=== PATIENT | female | born 1990 | race Caucasian/White ===

== ENCOUNTER 2016-10-12 23:17 | Emergency (ER) | payer OTHER ==
[2016-10-12 23:20] VITALS: BP 133/97; PULSE 79; TEMP 98.5; BMI 29.2
--- NOTE | 2016-10-12 23:28 | PDOC ---
History of Present Illness - General Chief Complaint: Chest Pain Stated Complaint: CHEST HEAVINESS Time Seen by Provider: 10/12/16 23:24 History Source: Patient Exam Limitations: No Limitations - History of Present Illness Initial Comments: 10/12/16 23:24 26 Y F NO PMHX NO RISK FACTORS FOR CAD OR PE, TRACTOR EXPERT UNDER "A LOT OF STRESS" PALPITATIONS AND CHEST TIGHTNESS ON AND OFF. SPECIALLY AT NIGHTS. NO N/ V. OCCASIONAL NUMBNESS OR SWEATING OF HANDS. IN ED IN NAD. SLIGHTLY ANXIOUS. STILL FEELS SOME PRESSURE BUT IS GETTING BETTER. Past History - Past Medical History Allergies/Adverse Reactions: Allergies Allergy/AdvReac Type Severity Reaction Status Date / Time No Known Allergies Allergy Unverified 03/04/14 22:45 Home Medications: Ambulatory Orders NK [No Known Home Medication] 03/04/14 - Immunization History Td Vaccination: Yes Immunization Up to Date: Yes - Psycho/Social/Smoking Cessation Hx Anxiety: No Suicidal Ideation: No Smoking Status: No Smoking History: Unknown if ever smoked Number of Cigarettes Smoked Daily: 0 Hx Alcohol Use: Yes (SOCIALLY) Cardiac Specific PMH - Complaint Specific PMHX Angina: No Pulmonary Embolus: No Review of Systems - Review of Systems Able to Perform ROS?: Yes Is the patient limited Mohawk proficient: No Constitutional: Yes: Symptoms Reported, See HPI HEENTM: No: Symptoms Reported Respiratory: Yes: Symptoms reported, See HPI Cardiac (ROS): Yes: Symptoms Reported, See HPI Neurological: Yes: Symptoms reported, See HPI Psychiatric: Yes: Anxiety All Other Systems: Reviewed and Negative *Physical Exam - Vital Signs Last Vital Signs Temp Pulse Resp BP Pulse Ox 98.5 F 79 16 133/97 98 10/12/16 23:18 10/12/16 23:18 10/12/16 23:18 10/12/16 23:18 10/12/16 23:18 - Physical Exam General Appearance: Yes: Nourished, Appropriately Dressed. No: Apparent Distress HEENT: positive: Normal ENT Inspection Neck: positive: Supple. negative: Carotid bruit Respiratory/Chest: positive: Lungs Clear, Normal Breath Sounds. negative: Chest Tender, Respiratory Distress Cardiovascular: positive: Regular Rhythm, Regular Rate Gastrointestinal/Abdominal: positive: Normal Bowel Sounds, Soft. negative: Tender Extremity: positive: Normal Capillary Refill. negative: Tender, Pedal Edema Integumentary: positive: Normal Color Neurologic: positive: Fully Oriented, Alert, Normal Mood/Affect, Normal Response , Motor Strength 5/5 *DC/Admit/Observation/Transfer Diagnosis at time of Disposition: Anxiety in acute stress reaction - Discharge Dispostion Disposition: HOME Condition at time of disposition: Improved - Patient Instructions Additional Instructions: RESPIRATORY CONTROL AND RELAXATION CALL YOUR DOCTOR TOMORROW RETURN IF WORSENING OR NEW SYMPTOMS
== END 2016-10-12 23:32 | disposition home or self-care (01) ==
LOC: FER 23:17
DX: F41.1 Generalized anxiety disorder (principal); F43.0 Acute stress reaction
CPT/HCPCS: 99281-25

== ENCOUNTER 2018-08-14 22:48 | Emergency (ER) | payer BC, OTHER ==
--- NOTE | 2018-08-14 23:00 | PDOC ---
History of Present Illness - General Chief Complaint: Urinary Problem Stated Complaint: BURNING WITH URINATION Time Seen by Provider: 08/14/18 22:51 - History of Present Illness Initial Comments: This 28-year-old woman presents with a one-day history of dysuria and mild urinary urgency/frequency. She denies hematuria/fever/back pain/nausea or vomiting. One previous episode of UTI at age 16. Otherwise, no history of genitourinary problems. Patient has a history of infertility and states that she had an intrauterine insemination performed by her fertility doctor on MondayAugust 06. Past History - Past Medical History Allergies/Adverse Reactions: Allergies Allergy/AdvReac Type Severity Reaction Status Date / Time No Known Allergies Allergy Verified 08/14/18 22:55 Home Medications: Ambulatory Orders Cephalexin [Keflex] 500 mg PO TID #15 capsule 08/14/18 Metformin HCl [Glucophage] 1,000 mg PO DAILY 08/14/18 Prenat 115/Iron Fum/Folic/Dss [ 19 Tablet] 1 each PO DAILY 08/14/18 - Immunization History Td Vaccination: Yes Immunization Up to Date: Yes - Suicide/Smoking/Psychosocial Hx Smoking Status: No Smoking History: Unknown if ever smoked Number of Cigarettes Smoked Daily: 0 Hx Alcohol Use: Yes (SOCIALLY) Review of Systems - Review of Systems Able to Perform ROS?: Yes Comments:: 12 point review of systems is negative except for what is noted in the history of present illness *Physical Exam - Physical Exam Comments: GENERAL: Adult female, alert and oriented 3, in no acute distress HEAD: Normal with no signs of trauma. EYES: PERRLA, EOMI, sclera anicteric, conjunctiva clear. ENT: Ears normal, nares patent, oropharynx clear without exudates. Moist mucous membranes. NECK: Normal range of motion, supple without lymphadenopathy, JVD, or masses. LUNGS: Breath sounds equal, clear to auscultation bilaterally. No wheezes, and no crackles. HEART:Regular rate and rhythm, normal S1 and S2 without murmur, rub or gallop. ABDOMEN:.normal bowel sounds No guarding or rebound.No masses No distention. Mild suprapubic tenderness EXTREMITIES: Normal range of motion, no edema. No clubbing or cyanosis. No erythema, or tenderness. NEUROLOGICAL: Cranial nerves II through XII grossly intact. Normal speech. No focal neurological deficits. MUSCULOSKELETAL: Back non-tender to palpation, no CVA tenderness SKIN: Warm, Dry, normal turgor, no rashes or lesions noted. Progress Note - Progress Note Progress Note: Urinalysis sent. Results of the urinalysis suggest UTI: Positive nitrite, 20-40 RBCs/50-100 WBCs , 2+ epi, 2+ bacteria. Urine sent for culture and sensitivity Since patient has significant symptoms, treatment will be begun empirically. Keflex 500 mg 3 times a day for 5 days prescribed with prescription being sent to her pharmacy. Patient will have the first dose of Keflex 500 mg here in the emergency room. Meanwhile, she should continue drink plenty of water and return to the ER if she has worsening pain or develops fever/back pain/vomiting *DC/Admit/Observation/Transfer Diagnosis at time of Disposition: UTI (urinary tract infection) Qualifiers: Urinary tract infection type: acute cystitis - Discharge Dispostion Disposition: HOME Condition at time of disposition: Stable - Prescriptions Prescriptions: Cephalexin [Keflex] 500 mg PO TID #15 capsule - Referrals - Patient Instructions Printed Discharge Instructions: Urinary Tract Infection Additional Instructions: Drink plenty of water Keflex 500 mg 3 times a day for 5 days Return to ER if you have more severe pain/vomiting/fever Follow-up with your doctor within the next 2-3 days - Post Discharge Activity
[2018-08-14 23:01] VITALS: BP 123/83; PULSE 103; TEMP 98.3; BMI 31.6
[2018-08-14 23:04] LABS: HCG,QUALITATIVE URINE Negative
[2018-08-14 23:07] LABS: PH,URINE 5.5 (4.5-8); URINE APPEARANCE Cloudy; URINE BILIRUBIN Negative (NEGATIVE); URINE COLOR Yellow; URINE GLUCOSE (UA) Negative (NEGATIVE); URINE KETONE Trace (NEGATIVE); URINE LEUK ESTERASE 1+ (NEGATIVE); URINE NITRITE Positive (NEGATIVE); URINE PROTEIN 2+ (NEGATIVE); URINE UROBILINOGEN 0.2 (0.2-1.0)
[2018-08-14 23:35] LABS: EPI CELLS 2+ /HPF; URINE BACTERIA 2+ /hpf (NEGATIVE); URINE RBC 20-40 /hpf (0-3); URINE WBC 50-100 (0-5)
[2018-08-14] MEDS ORDERED: CEPHALEXIN MONOHYDRATE 500 MG CAPSULE (UD) PO ONE (23:36)
[2018-08-14] MEDS ORDERED: CEPHALEXIN MONOHYDRATE 500 MG CAPSULE (UD) ONE (23:44)
== END 2018-08-14 23:49 | disposition home or self-care (01) ==
LOC: FER 22:48
DX: N30.00 Acute cystitis without hematuria (principal)
CPT/HCPCS: 81003; 81015; 84703; 87086; 87186; 99281-25

== ENCOUNTER 2019-09-09 07:30 | Inpatient (IN) | payer BC ==
[2019-09-09 08:32] VITALS: BMI 39.4
[2019-09-09] MEDS ORDERED: morphine SULFATE/PF 0.5 MG/ML (2cc Syringe - QUVA) ONE (08:44)
[2019-09-09] MEDS ORDERED: ELECTROLYTE-148 SOLN 1,000 ML IV ONE (08:45)
[2019-09-09] MEDS ORDERED: CITRIC ACID/SODIUM CITRATE 30 ML UNIT-DOSE CUP PO ONE (08:45)
[2019-09-09] MEDS ORDERED: PHENYLEPHRINE HCL 10 MG/1 ML SINGLE DOSE VIAL ONE (08:45)
[2019-09-09] MEDS ORDERED: KETOROLAC TROMETHAMINE 30 MG/1 ML VIAL ONE (08:48)
[2019-09-09] MEDS ORDERED: ONDANSETRON 4 MG/2 ML VIAL IVPUSH PRN (08:51)
[2019-09-09] MEDS ORDERED: OXYTOCIN 20 UNITS in 0.9% NS 20 UNIT/1,000 ML INFUS.BAG IV ONE ×2 (08:53→11:45)
[2019-09-09] MEDS ORDERED: SUCCINYLCHOLINE CHLORIDE 200 MG/10 ML SYRINGE ONE (08:59)
--- NOTE | 2019-09-09 09:20 | HP ---
Past Medical History - Primary Care Physician PCP:: Ted Flowers - Admission Chief Complaint: 29yo P0 with at EGA 39w1d admitted for primary LT C/ S due to stenotic/irregular cranial (basilar) artery. History of Present Illness: IVF Pt with irregular basilar artery and was advised to have C/S delivery by Neuro Maternal obesity History Source: Patient, Medical Record Limitations to Obtaining History: No Limitations - Past Medical History MILL MANAGER: Yes: Migraine, Other (irregular basilar artery) Cardiovascular: No: AFIB, Aneurysm, Aortic Insufficiency, Aortic Stenosis, CAD, CHF, Deep Vein Thrombosis, HTN, Hyperlipdemia, ME, Mitral Insufficiency, Mitral Stenosis, Murmur, Pulmonary Hypertension, Other Pulmonary: No: Asthma, Bronchitis, Cancer, COPD, O2 Dependent, Pneumonia, Previously Intubated, Pulmonary Embolus, Pulmonary Fibrosis, Sleep Apnea, Other Gastrointestinal: No: Ascites, Cancer, Constipation, Crohn's Disease, Diverticulitis, Diverticulosis, Esophageal Varices, Gastritis, GERD, GI Bleed, Hemorrhoids, Hiatal Hernia, Inflamatory Bowel Disease, Irritable Bowel Disease, Pancreatitis, Peptic Ulcer Disease, Ulcerative Colitis, Other Hepatobiliary: No: Cirrhosis, Cholelithiasis, Cholecystitis, Choledocholithiasis , Hepatitis A, Hepatitis B, Hepatitis C, Other Renal/: No: Renal Failure, Renal Inusuff, BPH, Cancer, Hematuria, Hemodialysis , Neurogenic Bladder, Renal Calculi, UTI, Other Reproductive: No: Ectopic , Endometriosis, Fibroids, PID, Polycystic Ovary Syndrome, Postmenopausal, Other ...: 1 ...Para: 0 ...Term: 0 ...: 0 ...Spon : 0 ...Induced : 0 ...Multiple Gestation: 0 ...LMP: 12/09/18 ... Weeks Gestation by Dates: 39.1 ...EDC by Dates: 09/15/19 Heme/Onc: No: Anemia, B12 Deficiency, Bleeding Disorder, Cancer, Current Chemotherapy, Current Radiation Therapy, Hemochromatosis, Hypercoaguable State, Myeloproliferative Synd, Sickle Cell Disease, Sickle Cell Trait, Thrombocytopenia, Other Infectious Disease: No: AIDS, C-Diff, Herpes Zoster, HIV, MRSA, STD's, Tuberculosis, VREF, Other Psych: No: Addictions, Anxiety, Bipolar, Depression, Panic, Psychosis, Schizophrenia, Other Musculoskeletal: No: Bursitis, Chronic low back pain, Hemiparesis, Hemiplegia, Osteoarthritis, Paraplegia, Other Rheumatology: No: Fibromyalgia, Gout, Lupus, Rheumatoid Arthritis, Sarcoidosis, Vasculitis, Other ENT: No: Allergic Rhinitis, Sinusitis, Other Endocrine: No: Ryderwood's Disease, Umer's Disease, Diabetes Insipidus, Diabetes Mellitus, Hyperparathyroidism, Hyperthyroidism, Hypothyroidism, Osteopenia, SIADH, Other Dermatology: No: Basal Cell, Cellulitis, Eczema, Melanoma, Psoriasis, Squamous Cell, Other - Past Surgical History Past Surgical History: Yes: None Hx Myomectomy: No Hx Transabdominal Cerclage: No Additional Surgical History: Hand surgery - Smoking History Smoking history: Never smoked Have you smoked in the past 12 months: No Aproximately how many cigarettes per day: 0 - Alcohol/Substance Use Hx Alcohol Use: No History of Substance Use: reports: None - Social History Usual Living Arrangement: Yes: With Spouse Do you think of yourself as: Straight/Heterosexual ADL: Independent Occupation: RN History of Recent Travel: No Home Medications - Allergies Allergies/Adverse Reactions: Allergies Allergy/AdvReac Type Severity Reaction Status Date / Time tomato AdvReac Intermediate Verified 09/09/19 08:03 - Home Medications Home Medications: Ambulatory Orders Prenat 115/Iron Fum/Folic/Dss [ 19 Tablet] 1 each PO DAILY 08/14/18 Calcium Carbonate [Calcium] 600 mg PO DAILY 09/09/19 Famotidine [Pepcid -] 20 mg PO DAILY 09/09/19 Magnesium Oxide [Magnesium] 400 mg PO DAILY 09/09/19 Family Medical History Other Family History: Mother with Hypothyroid, Brother with Turette's syndrome Review of Systems - Review of Systems Constitutional: reports: No Symptoms Eyes: reports: No Symptoms HENT: reports: No Symptoms Neck: reports: No Symptoms Cardiovascular: reports: No Symptoms Respiratory: reports: No Symptoms Gastrointestinal: reports: No Symptoms Genitourinary: reports: No Symptoms Breasts: reports: No Symptoms Reported Musculoskeletal: reports: No Symptoms Integumentary: reports: No Symptoms Neurological: reports: No Symptoms Endocrine: reports: No Symptoms Hematology/Lymphatic: reports: No Symptoms Psychiatric: reports: No Symptoms Pain Intensity: 0 Physical Exam - Maternity Vital Signs: Vital Signs Temperature 98.1 F 09/09/19 08:00 Pulse Rate 103 H 09/09/19 08:00 Respiratory Rate 18 09/09/19 08:00 Blood Pressure 119/75 09/09/19 08:00 O2 Sat by Pulse Oximetry (%) Constitutional: Yes: Well Nourished, No Distress, Calm Eyes: Yes: WNL, Conjunctiva Clear, EOM Intact HENT: Yes: WNL, Atraumatic, Normocephalic Neck: Yes: WNL, Supple, Trachea Midline Cardiovascular: Yes: WNL, Regular Rate and Rhythm Lungs: Clear to auscultation, Normal air movement Breast(s): Yes: WNL - Abdominal Exam/OB Fundal Height: 39 Number of Fetuses: Single Presentation: Vertex Contractions: No Monitor Mode: External Heart Rate (range): 130 Assessment/Plan 29yo P0 with at EGA 39w1d admitted for primary LT C/S due to stenotic/ irregular cranial (basilar) artery. The pt consulted a Neurologist and the decision was made to proceed with delivery by C/S. We discussed the risks and benefits of C/S at length, including but not limited to scarring, pain, bleeding , infection, injury to underlying organs and structures, need for additional surgery to repair/treat any problems or complications, complications/ injuries, etc. The pt verbalized her understanding and requested to proceed with surgery. The pt is aware that all surgeries have risks and no guarantees can be provided.
--- NOTE | 2019-09-09 10:26 | PN ---
Progress Note (short form) - Note Progress Note: I assisted Dr. Flowers at c/section for the entirety of the case.
--- NOTE | 2019-09-09 10:57 | OP ---
Operative Note - Note: Operative Date: 09/09/19 Pre-Operative Diagnosis: at EGA 39w1d. Basilar artery senosis. Maternal obesity Operation: Primary LT C/S Findings: Live baby boy in vtx presentation. No meconium in amniotic fluid. Normal uterus/ tubes/ovaries. Post-Operative Diagnosis: Same as Pre-op Surgeon: Ted Flowers Credit Card Clerk: Isrrael Haskins Anesthesiologist/BRAND ATTENDANT: Mónica Barragan Anesthesia: Spinal Specimens Removed: Placenta Estimated Blood Loss (mls): 800 Drains & Tubes with Location: Box cath Drains, Volume Out (mls): 200 Blood Volume Replaced (mls): 0 Fluid Volume Replaced (mls): 1,800 Operative Report Dictated: Yes
--- NOTE | 2019-09-09 10:58 | PN ---
Delivery - Delivery Section: Primary, Low Flap Transverse Type of Anesthesia: Spinal Episiotomy/Laceration: None EBL (cc): 800 Delivery, Single - Stages of Labor Date of Delivery: 09/09/19 Time of Delivery: 09:46 Time Placenta Delivered: 09:47 Placenta: Yes: Expressed, Normal Configuration - Condition of Sports Book Board Attendant/Meter Attendant Present: Yes Name: Dana Hancock Gender: Male Weight: 4.082 kg Position: Right, OT Total Hours ROM (Hrs/Mins): 3mins - 1 Minute Total Score: 8 5 Minutes Total Score: 9 - Feeding Plan Initial Plan: Elected not to breastfeed exclusively throughout hospitalization Benefits of Exclusively reinforced: Yes
[2019-09-09] MEDS ORDERED: WITCH HAZEL 50% (TUCKS) 40 PAD/JAR PAD TP PRN (12:22)
[2019-09-09] MEDS ORDERED: BENZOCAINE 20% 57 GM BOTTLE TP PRN (12:22)
[2019-09-09] MEDS ORDERED: oxyCODONE HCL 5 MG TABLET PO PRN (12:22)
[2019-09-09] MEDS ORDERED: BENZOCAINE 28 GM HEMORRHOIDAL OINTMENT TP PRN (12:22)
[2019-09-09] MEDS ORDERED: METHYLERGONOVINE MALEATE 0.2 MG/1 ML AMP IM PRN (12:22)
[2019-09-09] MEDS ORDERED: IBUPROFEN 800 MG/8 ML IJ IVPB PRN (12:22)
[2019-09-09] MEDS: OXYTOCIN 20 UNITS in 0.9% NS 20 UNIT/1,000 ML INFUS.BAG IV SCH (12:30)
[2019-09-09] MEDS: SIMETHICONE 80 MG TAB.CHEW (FP) PO PRN (17:31)
[2019-09-09] MEDS ORDERED: SENNOSIDES/DOCUSATE COMBO (SENNA PLUS) TABLET (UD) PO PRN (22:00)
[2019-09-10 07:54] LABS: BASO % 0.2 % (0-2.0); EOS % 0.1 % (0-4.5); HEMATOCRIT 29.2 % (32.4-45.2); HEMOGLOBIN 9.6 GM/dL (10.7-15.3); LYMPH % 12.7 % (8-40); MCH 24.6 pg (25.7-33.7); MCHC 32.7 g/dl (32.0-36.0); MEAN CELL VOLUME 75.2 fl (80-96); MEAN PLT VOLUME 8.6 fl (7.5-11.1); MONO % 4.3 % (3.8-10.2); NEUT % 82.7 % (42.8-82.8); PLATELET COUNT 248 K/MM3 (134-434); RBC 3.89 M/mm3 (3.60-5.2); RDW 15.3 % (11.6-15.6); WHITE BLOOD COUNT 14.4 K/mm3 (4.0-10.0)
--- NOTE | 2019-09-10 08:36 | PN ---
Progress Note (short form) - Note Progress Note: Post op day#1.S/P C section under spinal anesthesia uneventful.Patient stable and has little pain for which she is on medication.No any anesthesia related problem.Patient Dc from the anesthesia care.
[2019-09-10] MEDS: PRENATAL VITAMINS W/ FOLIC ACID TABLET (FP) PO SCH (09:53)
[2019-09-10] MEDS: ENOXAPARIN NA (PORCINE) 40 MG/0.4 ML DISP.SYRIN SQ SCH (09:53)
--- NOTE | 2019-09-10 12:15 | PN ---
Progress Note (short form) - Note Progress Note: pod 1 s/p c/s, doing well, no c/o sitting on chair CBC, BMP 09/10/19 07:23 Last Vital Signs Temp Pulse Resp BP Pulse Ox 98.9 F 109 H 18 120/70 99 09/10/19 10:00 09/10/19 10:00 09/10/19 10:00 09/10/19 10:00 09/09/19 11:55 abdomen soft, no distension, no cva uterus firm , incision dry, clean lochia mild no calf tenderness plan ambulate pain management, advance diet
[2019-09-10] MEDS ORDERED: BISACODYL 10 MG SUPP.RECT RC PRN (12:22)
[2019-09-10] MEDS: SIMETHICONE 80 MG TAB.CHEW (FP) PO PRN (12:51)
[2019-09-10] MEDS: IBUPROFEN 600 MG TABLET (FP) PO PRN (13:36)
--- NOTE | 2019-09-10 15:16 | PATH ---
Surgical Pathology Report Patient Name: JORGE CERDA [facility]. Rec. #: [id number] /Age/Gender: 1990 (Age: 29) / F Account: [id number] Location: [facility] OBS/HOME CARE SPECIALIST Taken: 09/09/2019 Received: 09/09/2019 Reported: 09/10/2019 Physicians: Ted Flowers M.D. Specimen(s) Received PLACENTA Clinical History , 39.1 weeks Final Diagnosis PLACENTA, SECTION: 556 G THIRD TRIMESTER PLACENTA WITH TRIVASCULAR UMBILICAL CORD AND UNREMARKABLE PLACENTAL MEMBRANES. Electronically Signed Kezia Maldonado M.D. Gross Description The specimen is received fresh labeled placenta and is a 556 gram, 20.0 x 17.0 x 2.1 cm. placenta with attached membranes and umbilical cord. The attached membranes are garzon, translucent with focal opacities and insert marginally. The umbilical cord measures 17 cm. in length and averages 1.3 cm. in diameter. The cord inserts eccentrically, 5.5 cm. to the nearest margin. No true knots or strictures are identified. Cut surface of the umbilical cord reveals 3 vessels. The surface is tipton blue with moderate fibrin deposition and appropriate caliber vessels. The maternal surface is red-brown with focal defects. Sectioning reveals red-brown, spongy parenchyma. No lesions are identified. Screen Printing Supervisor sections are submitted in three cassettes as follows: 1- membrane rolls and umbilical cord; 2-3- full thickness sections of placenta. /09/09/2019 [facility]/09/09/2019
[2019-09-10] MEDS: ELECTROLYTE-148 SOLN 1,000 ML IV SCH (19:49)
[2019-09-10] MEDS: OXYTOCIN 20 UNITS in 0.9% NS 20 UNIT/1,000 ML INFUS.BAG IV SCH (19:50)
[2019-09-11] MEDS: SIMETHICONE 80 MG TAB.CHEW (FP) PO PRN (01:43)
[2019-09-11] MEDS: IBUPROFEN 600 MG TABLET (FP) PO PRN (01:43)
[2019-09-11] MEDS: ENOXAPARIN NA (PORCINE) 40 MG/0.4 ML DISP.SYRIN SQ SCH (10:08)
[2019-09-11] MEDS: PRENATAL VITAMINS W/ FOLIC ACID TABLET (FP) PO SCH (10:08)
--- NOTE | 2019-09-11 11:50 | PN ---
Progress Note (short form) - Note Progress Note: pod 2 s/p c/s. ambulating,,passing gas , has mild low abdominal cramps , no dizziness , no excess vaginal bleeding Last Vital Signs Temp Pulse Resp BP Pulse Ox 97.8 F 103 H 20 120/77 99 09/11/19 10:00 09/11/19 10:00 09/11/19 10:00 09/11/19 10:00 09/09/19 11:55 CBC, BMP 09/10/19 07:23 abdomen soft, no distension, no cva incision dry, healing well, ,no discharge lochia mild no calf tenderness plan ambulate cbc in am pain management plan for d/c home in am
--- NOTE | 2019-09-12 07:20 | DS ---
Physical Exam-HEALTH CARE ADMINISTRATOR Vital Signs: Vital Signs Temperature 98.1 F 09/11/19 22:00 Pulse Rate 99 H 09/11/19 22:00 Respiratory Rate 18 09/11/19 22:00 Blood Pressure 127/73 09/11/19 22:00 O2 Sat by Pulse Oximetry (%) 99 09/09/19 11:55 Constitutional: Yes: Well Nourished, No Distress, Calm Eyes: Yes: WNL, Conjunctiva Clear, EOM Intact HENT: Yes: WNL, Atraumatic, Normocephalic Neck: Yes: WNL, Supple, Trachea Midline Cardiovascular: Yes: WNL, Regular Rate and Rhythm Respiratory: Yes: WNL, Regular, CTA Bilaterally Gastrointestinal: Yes: WNL ...Rectal Exam: Yes: WNL Renal/: Yes: WNL ....Post : Yes: Uterus firm, Uterus non-tender, Slight lochia rubra Breast(s): Yes: WNL Musculoskeletal: Yes: WNL Extremities: Yes: WNL Edema: LLE: Trace, RLE: Trace Integumentary: Yes: WNL Wound/Incision: Yes: Clean/Dry, Well Approximated, Sutures Intact Neurological: Yes: WNL, Alert, Oriented ...Motor Strength: WNL Psychiatric: Yes: WNL, Alert, Oriented Labs: CBC, BMP 09/10/19 07:23 Delivery - Delivery Section: Primary, Low Flap Transverse Type of Anesthesia: Spinal Episiotomy/Laceration: None EBL (cc): 800 Delivery, Single - Stages of Labor Date of Delivery: 09/09/19 Time of Delivery: 09:46 Time Placenta Delivered: 09:47 Placenta: Yes: Expressed, Normal Configuration - Condition of Infant Cross Country/Track And Field Coach/Wire Wrapper Machine Operator Present: Yes Name: Dana Hancock Gender: Male Weight: 9 lb Position: Right, OT Total Hours ROM (Hrs/Mins): 3mins - 1 Minute Total Score: 8 5 Minutes Total Score: 9 - [place] Feeding Plan Initial Plan: Elected not to breastfeed exclusively throughout hospitalization Benefits of Exclusively reinforced: Yes Discharge Summary Problems reviewed: Yes Reason For Visit: C SETION Procedures: Principal: primary LST c/s Other Procedures: none Hospital Course: no complication Health Concerns: obesity Plan of Treatment: follow up office 1 week Goals: normal BMI Condition: Good - Instructions Diet, Activity, Other Instructions: regular diet, , no intercourse , follow up office 1 week. if fever , pain ,heavy vaginal bleeding call md Referrals: Ted Flowers MD [Staff Physician] - Disposition: HOME - Home Medications Comprehensive Discharge Medication List: Ambulatory Orders Prenat 115/Iron Fum/Folic/Dss [ 19 Tablet] 1 each PO DAILY 08/14/18 Calcium Carbonate [Calcium] 600 mg PO DAILY 09/09/19 Famotidine [Pepcid -] 20 mg PO DAILY 09/09/19 Ibuprofen [Motrin -] 600 mg PO QID #28 tablet 09/09/19 Magnesium Oxide [Magnesium] 400 mg PO DAILY 09/09/19
[2019-09-12 08:38] LABS: BASO % 0.3 % (0-2.0); EOS % 2.6 % (0-4.5); HEMATOCRIT 28.6 % (32.4-45.2); HEMOGLOBIN 9.1 GM/dL (10.7-15.3); LYMPH % 19.7 % (8-40); MCH 24.4 pg (25.7-33.7); MEAN CELL VOLUME 76.2 fl (80-96); MEAN PLT VOLUME 7.9 fl (7.5-11.1); MONO % 5.3 % (3.8-10.2); NEUT % 72.1 % (42.8-82.8); PLATELET COUNT 311 K/MM3 (134-434); RBC 3.75 M/mm3 (3.60-5.2); RDW 15.9 % (11.6-15.6); WHITE BLOOD COUNT 11.7 K/mm3 (4.0-10.0)
[2019-09-12] MEDS: ENOXAPARIN NA (PORCINE) 40 MG/0.4 ML DISP.SYRIN SQ SCH (09:26)
[2019-09-12] MEDS: PRENATAL VITAMINS W/ FOLIC ACID TABLET (FP) PO SCH (09:27)
[2019-09-12] MEDS: IBUPROFEN 600 MG TABLET (FP) PO PRN (09:31)
[2019-09-12 10:25] VITALS: BP 128/87; PULSE 108; TEMP 97.9
== END 2019-09-12 12:40 | disposition home or self-care (01) | DRG 788 ==
LOC: JLDR 07:30 → J3W 12:20
PROVIDERS: ADMIT Obstetrics & Gynecology; ATTEND Obstetrics & Gynecology
PROC: 10D00Z1 Extraction of Products of Conception, Low, Open Approach (ICD-10-PCS; principal; 2019-09-09)
DX: O75.89 Other specified complications of labor and delivery (principal); I65.1 Occlusion and stenosis of basilar artery; Z3A.39 39 weeks gestation of pregnancy; Z37.0 Single live birth
CPT/HCPCS: 36415; 85025; 88307-TC

== ENCOUNTER 2021-01-22 13:10 | Inpatient (IN) | payer BC ==
[2021-01-22] MEDS: ELECTROLYTE-148 SOLN 1,000 ML IV SCH (14:00)
[2021-01-22] MEDS ORDERED: CITRIC ACID/SODIUM CITRATE 30 ML UNIT-DOSE CUP PO ONE (14:02)
[2021-01-22 14:43] VITALS: BMI 41.1
[2021-01-22] MEDS ORDERED: OXYTOCIN 20 UNITS in 0.9% NS 20 UNIT/1,000 ML INFUS.BAG IV ONE (15:27)
[2021-01-22] MEDS ORDERED: CEFAZOLIN 2 GM/D5W 2 GM/50 ML ML IVPB ONE (15:27)
[2021-01-22] MEDS ORDERED: morphine SULFATE/PF 0.5 MG/ML (2cc Syringe - QUVA) ONE (15:29)
[2021-01-22] MEDS ORDERED: OXYTOCIN 10 UNITS/ML VIAL ONE (15:30)
[2021-01-22] MEDS ORDERED: ONDANSETRON 4 MG/2 ML VIAL ONE (15:30)
[2021-01-22] MEDS ORDERED: KETOROLAC TROMETHAMINE 30 MG/1 ML VIAL ONE (15:30)
[2021-01-22] MEDS ORDERED: ONDANSETRON 4 MG/2 ML VIAL IVPUSH PRN (15:33)
[2021-01-22 17:09] LABS: CORD HCO3 24.5 mmHg (20-29); CORD PCO2 57.2 mmHg (30-78); CORD pH 7.249 (7.14-7.44)
[2021-01-22 17:12] LABS: CORD BASE EXCESS -3.5 mmol/L (0-2); CORD HCO3 22.1 mmHg (20-29); CORD PCO2 41.8 mmHg (30-78); CORD pH 7.341 (7.14-7.44)
[2021-01-22] MEDS ORDERED: WITCH HAZEL 50% (TUCKS) 40 PAD/JAR PAD TP PRN (18:35)
[2021-01-22] MEDS ORDERED: IBUPROFEN 800 MG/8 ML IJ IVPB PRN (18:35)
[2021-01-22] MEDS ORDERED: METHYLERGONOVINE MALEATE 0.2 MG/1 ML AMP IM PRN (18:35)
[2021-01-22] MEDS ORDERED: oxyCODONE HCL 5 MG TABLET PO PRN (18:35)
[2021-01-22] MEDS: OXYTOCIN 20 UNITS in 0.9% NS 20 UNIT/1,000 ML INFUS.BAG IV SCH (20:11)
[2021-01-22] MEDS: CEFAZOLIN 1 GM/D5W 1 GM/50 ML BAG IVPB SCH (23:13)
[2021-01-23 07:20] LABS: BASO % 0.2 % (0-2.0); EOS % 0.4 % (0-4.5); HEMATOCRIT 32.2 % (32.4-45.2); HEMOGLOBIN 10.5 GM/dL (10.7-15.3); LYMPH % 16.3 % (8-40); MCH 23.9 pg (25.7-33.7); MCHC 32.5 g/dl (32.0-36.0); MEAN CELL VOLUME 73.4 fl (80-96); MEAN PLT VOLUME 8.1 fl (7.5-11.1); MONO % 6.1 % (3.8-10.2); PLATELET COUNT 220 10^3/uL (134-434); RBC 4.39 M/mm3 (3.60-5.2); RDW 17.2 % (11.6-15.6); WHITE BLOOD COUNT 10.8 K/mm3 (4.0-10.0)
[2021-01-23] MEDS: CEFAZOLIN 1 GM/D5W 1 GM/50 ML BAG IVPB SCH ×2 (08:17→15:20)
[2021-01-23] MEDS: ENOXAPARIN NA (PORCINE) 40 MG/0.4 ML DISP.SYRIN SQ SCH (09:08)
[2021-01-23] MEDS: PRENATAL VITAMINS W/ FOLIC ACID TABLET (FP) PO SCH (09:08)
[2021-01-23] MEDS: SIMETHICONE 80 MG TAB.CHEW (FP) PO PRN ×2 (15:26→20:13)
[2021-01-23] MEDS ORDERED: BISACODYL 10 MG SUPP.RECT RC PRN (18:35)
[2021-01-23] MEDS: IBUPROFEN 600 MG TABLET (FP) PO PRN (19:52)
[2021-01-23] MEDS: ACETAMINOPHEN 500 MG TABLET (FP) PO PRN (20:13)
[2021-01-24] MEDS: IBUPROFEN 600 MG TABLET (FP) PO PRN ×4 (01:04→22:11)
[2021-01-24] MEDS: ACETAMINOPHEN 500 MG TABLET (FP) PO PRN ×4 (01:04→22:12)
[2021-01-24] MEDS: ENOXAPARIN NA (PORCINE) 40 MG/0.4 ML DISP.SYRIN SQ SCH (09:09)
[2021-01-24] MEDS: PRENATAL VITAMINS W/ FOLIC ACID TABLET (FP) PO SCH (09:09)
[2021-01-24] MEDS: SIMETHICONE 80 MG TAB.CHEW (FP) PO PRN ×2 (16:42→22:11)
[2021-01-25] MEDS: ELECTROLYTE-148 SOLN 1,000 ML IV SCH ×2 (07:09→07:14)
[2021-01-25] MEDS: OXYTOCIN 20 UNITS in 0.9% NS 20 UNIT/1,000 ML INFUS.BAG IV SCH ×2 (07:10→07:14)
[2021-01-25 07:47] LABS: BASO % 0.4 % (0-2.0); EOS % 2.4 % (0-4.5); HEMOGLOBIN 10.6 GM/dL (10.7-15.3); LYMPH % 29.2 % (8-40); MCH 23.9 pg (25.7-33.7); MCHC 32.2 g/dl (32.0-36.0); MEAN CELL VOLUME 74.3 fl (80-96); MONO % 7.3 % (3.8-10.2); NEUT % 60.7 % (42.8-82.8); PLATELET COUNT 284 10^3/uL (134-434); RBC 4.44 M/mm3 (3.60-5.2); RDW 17.5 % (11.6-15.6); WHITE BLOOD COUNT 10.2 K/mm3 (4.0-10.0)
[2021-01-25 09:06] LABS: ANISOCYTOSIS 2+; MACROCYTOSIS 0; PLATELET ESTIMATE NORMAL
[2021-01-25 09:44] VITALS: BP 133/83; PULSE 76; TEMP 98.1
[2021-01-25] MEDS: ENOXAPARIN NA (PORCINE) 40 MG/0.4 ML DISP.SYRIN SQ SCH (10:15)
[2021-01-25] MEDS: PRENATAL VITAMINS W/ FOLIC ACID TABLET (FP) PO SCH (10:15)
== END 2021-01-25 10:45 | disposition home or self-care (01) | DRG 788 ==
LOC: JLDR 13:10 → J3W 20:03
PROVIDERS: ADMIT Obstetrics & Gynecology; ATTEND Obstetrics & Gynecology
PROC: 10D00Z1 Extraction of Products of Conception, Low, Open Approach (ICD-10-PCS; principal; 2021-01-22)
DX: O34.211 Maternal care for low transverse scar from previous cesarean delivery (principal); N85.8 Other specified noninflammatory disorders of uterus; O99.214 Obesity complicating childbirth; Z3A.39 39 weeks gestation of pregnancy; Z37.0 Single live birth
CPT/HCPCS: 36415; 36600; 82803; 85025; 88307-TC